=== PATIENT | male | born 1980 | race Caucasian/White ===

== ENCOUNTER 2018-09-16 11:39 | Emergency (ER) | payer SELFPAY ==
[2018-09-16 12:09] VITALS: BP 140/84
--- NOTE | 2018-09-16 12:11 | UC ---
Throat Pain/Nasal Gabriel HPI - HPI Summary HPI Summary: 38 yo male presents with body aches, sinus pain/pressure/congestion, post nasal drip, and dry cough for the last 3 days. Today he woke up with a fever of 102F. He has been taking tylenol cold and flu with little relief, but did resolve his fever. He denies sick contacts, sore throat, SOB, rash, abdominal pain, n/v. He smokes daily. - History of Current Complaint Chief Complaint: UCRespiratory Stated Complaint: FLU LIKE SYMPTOMS Time Seen by Provider: 09/16/18 12:10 Hx Obtained From: Patient Onset/Duration: Gradual Onset Severity: Mild Pain Intensity: 4 Pain Scale Used: 0-10 Numeric - Allergies/Home Medications Allergies/Adverse Reactions: Allergies Allergy/AdvReac Type Severity Reaction Status Date / Time No Known Allergies Allergy Verified 08/10/14 21:18 Home Medications: Home Medications Phenylephrine/Dm/Acetaminop/GG [Tylenol Cold-Flu Severe Caplet] 2 each PO ONCE PRN 09/16/18 [History Confirmed 09/16/18] PMH/Surg Hx/FS Hx/Imm Hx - Additional Past Medical History Additional PMH: None - Surgical History Surgical History: Yes Surgery Procedure, Year, and Place: Tonsillectomy - Family History Known Family History: Positive: Non-Contributory - Social History Occupation: Employed Full-time Lives: With Family Alcohol Use: Weekly Substance Use Type: None Smoking Status (MU): Heavy Every Day Tobacco Smoker Type: Cigarettes Amount Used/How Often: 1/2 ppd Length of Time of Smoking/Using Tobacco: since age 23 Have You Smoked in the Last Year: Yes Review of Systems All Other Systems Reviewed And Are Negative: Yes Constitutional: Positive: Fever Skin: Positive: Negative Eyes: Positive: Negative ENT: Positive: Nasal Discharge, Sinus Congestion, Sinus Pain/Tenderness Respiratory: Positive: Cough Cardiovascular: Positive: Negative Gastrointestinal: Positive: Negative Neurovascular: Positive: Negative Neurological: Positive: Negative Psychological: Positive: Negative Physical Exam - Summary Physical Exam Summary: GENERAL: NAD. WDWN. No pain distress. SKIN: No rashes, sores, lesions, or open wounds. HEENT: Head: AT/NC Eyes: EOM intact. Conjunctiva clear without inflammation or discharge. Ears: Hearing grossly normal. TMs intact, no bulging, erythema, or edema. Nose: Nasal mucosa pink and moist. No discharge. TTP maxillary and frontal sinus. Throat: Posterior oropharynx without exudates, erythema, or tonsillar enlargement. Uvula midline. NECK: Supple. Nontender. No lymphadenopathy. CHEST: CTAB. No r/r/w. No accessory muscle use. Breathing comfortably and in no distress. CV: RRR. Without m/r/g. Pulses intact. Cap refill <2seconds NEURO: Alert. PSYCH: Age appropriate behavior. Triage Information Reviewed: Yes Vital Signs: Initial Vital Signs Temp 99.4 F 09/16/18 12:04 Pulse 103 09/16/18 12:04 Resp 16 09/16/18 12:04 BP 140/84 09/16/18 12:04 Pulse Ox 100 09/16/18 12:04 Vital Signs Reviewed: Yes Throat Pain/Nasal Course/Dx - Course Course Of Treatment: Sinusitis. Discussed with pt viral vs bacterial causes of his symptoms and he prefers to be on antibiotics at this time. Recommended trying mucinex and flonase OTC in addition. - Differential Dx/Diagnosis Provider Diagnosis: Sinusitis Discharge - Sign-Out/Discharge Documenting (check all that apply): Patient Departure All imaging exams completed and their final reports reviewed: No Studies - Discharge Plan Condition: Stable Disposition: HOME Prescriptions: Azithromycin TAB* [Zithromax TAB (Z-QUIRINO) 250 mg #6 tabs] 2 tab PO .TODAY, THEN 1 DAILY #1 quirino Patient Education Materials: Sinusitis (ED) Referrals: No Primary Care Phys,NOPCP [Primary Care Provider] - Additional Instructions: If you develop a fever, shortness of breath, chest pain, new or worsening symptoms - please call your PCP or go to the ED immediately. Your blood pressure was high at todays visit. Please see your primary provider within 4 weeks for recheck and re-evaluation. Continue taking tylenol for fever and discomfort. I recommend that you also try Mucinex and Flonase over the counter for your symptoms as directed - Billing Disposition and Condition Condition: STABLE Disposition: Home
== END 2018-09-16 12:30 | disposition home or self-care (01) ==
LOC: UCCORT 11:39
DX: J32.9 Chronic sinusitis, unspecified (principal); F17.210 Nicotine dependence, cigarettes, uncomplicated
CPT/HCPCS: 99212; G0463

== ENCOUNTER 2018-09-17 20:07 | Emergency (ER) | payer SELFPAY ==
[2018-09-17 20:24] VITALS: BP 126/73
[2018-09-17 20:50] LABS: Influenza A Molecular NEGATIVE (Negative); Influenza B Molecular NEGATIVE (Negative)
--- NOTE | 2018-09-17 20:56 | UC ---
Respiratory Complaint HPI - HPI Summary HPI Summary: 38 yo male with a 3-4 day hx of fever/chills/nasal congestion and cough ( productive) seen here yesterday and started on Z-Ben initially has severe myalgias but these cleared up no CP or SOB no n/v/d - History of Current Complaint Chief Complaint: UCGeneralIllness Stated Complaint: FEVER REVISIT Time Seen by Provider: 09/17/18 20:21 Hx Obtained From: Patient Onset/Duration: Gradual Onset, Lasting Days Timing: Constant Severity Initially: Mild Severity Currently: Moderate Pain Intensity: 0 Pain Scale Used: 0-10 Numeric - Allergies/Home Medications Allergies/Adverse Reactions: Allergies Allergy/AdvReac Type Severity Reaction Status Date / Time No Known Allergies Allergy Verified 09/17/18 20:25 PMH/Surg Hx/FS Hx/Imm Hx Previously Healthy: Yes - Surgical History Surgical History: Yes Surgery Procedure, Year, and Place: Tonsillectomy - Family History Known Family History: Positive: Hypertension, Non-Contributory - Social History Alcohol Use: Weekly Substance Use Type: None Smoking Status (MU): Heavy Every Day Tobacco Smoker Type: Cigarettes Amount Used/How Often: 1/2 ppd Length of Time of Smoking/Using Tobacco: since age 23 Have You Smoked in the Last Year: Yes Review of Systems All Other Systems Reviewed And Are Negative: Yes Constitutional: Positive: Fever, Chills, Fatigue Skin: Positive: Negative Eyes: Positive: Negative ENT: Positive: Nasal Discharge, Sinus Congestion Respiratory: Positive: Cough Cardiovascular: Positive: Negative Gastrointestinal: Positive: Negative Genitourinary: Positive: Negative Motor: Positive: Negative Neurovascular: Positive: Negative Musculoskeletal: Positive: Negative, Myalgia Psychological: Positive: Negative Physical Exam Triage Information Reviewed: Yes Appearance: Well-Appearing - non toxic appearing Vital Signs: Initial Vital Signs Temp 101 F 09/17/18 20:18 Pulse 119 09/17/18 20:18 Resp 16 09/17/18 20:18 BP 126/73 09/17/18 20:18 Pulse Ox 100 09/17/18 20:18 Vital Signs Reviewed: Yes Eyes: Positive: Conjunctiva Clear ENT: Positive: Hearing grossly normal, Nasal congestion. Negative: Nasal drainage, Tonsillar swelling, Tonsillar exudate, Trismus, Muffled voice, Hoarse voice Neck: Positive: Supple, Nontender, No Lymphadenopathy Respiratory: Positive: Lungs clear, Normal breath sounds, No respiratory distress, No accessory muscle use Cardiovascular: Positive: RRR, No Murmur, Tachycardia Musculoskeletal: Positive: ROM Intact, No Edema Neurological: Positive: Alert Psychological Exam: Normal Skin Exam: Normal Diagnostics - Laboratory Lab Results: influenza (-) POx -100% on room air comment: normal/not hypoxic - Radiology No standard instances Radiology Interpretation Completed By: ED Physician Summary of Radiographic Findings: increased markings at bases ...suspect due to poor inspiratory effort Respiratory Course/Dx - Differential Dx/Diagnosis Provider Diagnosis: Acute bronchitis Discharge - Sign-Out/Discharge Documenting (check all that apply): Patient Departure All imaging exams completed and their final reports reviewed: No - Discharge Plan Condition: Stable Disposition: HOME Prescriptions: Amoxicillin PO (*) [Amoxicillin 875 MG (*)] 875 mg PO BID #14 tab Patient Education Materials: Acute Bronchitis (ED) Forms: *Work Release Referrals: No Primary Care Phys,NOPCP [Primary Care Provider] - Additional Instructions: your official XR report is pending we will call if the radiologist notes a pneumonia rest fluids tylenol or advil recheck for worsening symptoms recheck in 48 hours if still febrile - Billing Disposition and Condition Condition: STABLE Disposition: Home
[2018-09-17] MEDS ORDERED: Amoxicillin PO (*) 500 MG CAP PO ONE (21:01)
--- NOTE | 2018-09-18 09:26 | UC ---
- Progress Note Progress Note: Final radiologist reading from September 17, 2018 comes back as no pneumonia and poor inspiration. The provider of the same date had the same interpretation therefore there is no discrepancy. Course/Dx - Diagnoses Provider Diagnoses: Acute bronchitis Discharge - Sign-Out/Discharge Documenting (check all that apply): Patient Departure All imaging exams completed and their final reports reviewed: Yes - Discharge Plan Condition: Stable Disposition: HOME Prescriptions: Amoxicillin PO (*) [Amoxicillin 875 MG (*)] 875 mg PO BID #14 tab Patient Education Materials: Acute Bronchitis (ED) Forms: *Work Release Referrals: No Primary Care Phys,NOPCP [Primary Care Provider] - Additional Instructions: your official XR report is pending we will call if the radiologist notes a pneumonia rest fluids tylenol or advil recheck for worsening symptoms recheck in 48 hours if still febrile - Billing Disposition and Condition Condition: STABLE Disposition: Home
== END 2018-09-17 21:12 | disposition home or self-care (01) ==
LOC: UCCORT 20:07
DX: J98.01 Acute bronchospasm (principal); F17.210 Nicotine dependence, cigarettes, uncomplicated
CPT/HCPCS: 71046; 99212; A9270-GY; G0463